=== PATIENT | male | born 1955 | race Caucasian/White ===

== ENCOUNTER 2018-03-23 20:57 | Inpatient (IN) | payer MEDICARE, OTHER ==
[2018-03-23 21:20] LABS: BASOPHILS % 0.3 (0.0-1.5); EOSINOPHILS % 1.4 % (0.0-6.8); MEAN CORPUSCULAR HEMOGLOBIN 34.1 pg (28.0-34.0); MONOCYTES % 4.7 % (0.0-11.0); NEUTROPHILS # 10.2 # k/uL (1.4-7.7)
--- NOTE | 2018-03-23 21:55 | ED Physician Documentation ---
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.) - ROS CONST: no problems (Per [facility] staff), weakness EYES/ENT: nasal drainage, nasal congestion CVS/RESP: cough GI/: denies: problems urinating, vomiting, diarrhea MS/SKIN/LYMPH: none - PAST HX Past History: hypertension, other (anemia, dementia, CVA, encephalopathy, Iron Def Anemia, BPH, chronic constipation) Other History: CVA, other (HLD, hypothyroidism) Surgeries/Procedures: none (patient unable to contribute to ROS) Allergies/Adverse Reactions: Allergies Allergy/AdvReac Type Severity Reaction Status Date / Time No Known Drug Allergies Allergy Verified 03/23/18 23:17 Home Medications: Ambulatory Orders Medication Instructions Recorded Aspirin 81 mg PO DAILY 07/19/12 Carvedilol [Coreg] 25 mg PO BID 03/23/18 Levothyroxine Sodium 88 mcg PO HS 03/23/18 Lisinopril 20 mg PO DAILY 03/23/18 Polyethylene Glycol 3350 [Miralax] 17 gm PO 1100 03/23/18 Potassium Chloride 20 meq PO TID 03/23/18 Simvastatin 20 mg PO HS 03/23/18 - SOCIAL HX Smoking History: non-smoker - FAMILY HX Family History: No - VITAL SIGNS Vital Signs: Vital Signs Temp Pulse Resp BP Pulse Ox 168/100 09/10/13 18:29 - REVIEWED ASSESSMENTS Nursing Assessment Reviewed: Yes Vitals Reviewed: Yes Progress - Progress Progress: RA Sat 88-90% on arrival. patient accepted for admission by Inder GROSSMAN. Levaquin started in ER; blood cultured obtained. ED Results Lab/Radiology - Lab Results Lab Results: Lab Results 03/23/18 03/23/18 21:12 21:12 WBC 11.40 K/ul K/ul (4.00-12.00) RBC 3.99 M/ul M/ul (3.90-5.20) Hgb 13.6 g/dL g/dL (12.0-18.0) Hct 40.5 % % (37.0-53.0) MCV 101.0 fl H fl (80.0-100.0) MCH 34.1 pg H pg (28.0-34.0) MCHC 33.6 g/dL g/dL (30.0-36.0) RDW 12.9 % % (11.3-14.3) Plt Count 193 K/mm3 K/mm3 (130-400) Neut % (Auto) 88.7 % H % (39.0-79.0) Lymph % (Auto) 4.9 % L % (16.0-50.0) [place] % (Auto) 4.7 % % (0.0-11.0) Eos % (Auto) 1.4 % % (0.0-6.8) Baso % (Auto) 0.3 (0.0-1.5) Neut # (Auto) 10.2 # k/uL H # k/uL (1.4-7.7) Lymph # (Auto) 0.6 # k/uL # k/uL (0.6-4.0) [place] # (Auto) 0.5 # k/uL # k/uL (0.0-0.9) Eos # (Auto) 0.2 # k/uL # k/uL (0.0-0.6) Baso # (Auto) 0.0 # k/uL # k/uL (0.0-0.5) Lactate 1.8 U/L U/L (0.7-2.1) - Radiology Radiology Impressions: Portable chest History: Cough and hypoxia Findings: The exam is extremely limited due to expiratory technique. Left low er lobe infiltrate or atelectasis is present. Minimal atelectasis is present at the right lung base. Heart size is probably normal. Impression: 1. Moderate left lower lobe infiltrate versus atelectasis. A standing two view chest radiograph with emphasis on maximal inspiratory effort is recommended due to expiratory technique on this exam. 2. Mild right lower lobe atelectasis. Electronically signed on Mar 23, 2018 9:36:12 PM CDT by: Young Mchugh Patient does not stand; wheelchair bound - Orders Orders: ED Orders Category Date Time Status Place IV Lock 1T Care 03/23/18 21:02 Active CHEST 1VIEW [RAD] Stat Exams 03/23/18 21:02 Taken BLOOD CULTURE Stat Lab 03/23/18 Ordered CBC/PLATELET/DIFF Stat Lab 03/23/18 21:12 Completed LACTATE Stat Lab 03/23/18 21:12 Completed Oxygen Daily Oxygen 03/23/18 21:15 Ordered General Adult Physical Exam - PHYSICAL EXAM GENERAL APPEARANCE: moderate distress EENT: eye inspection normal, ROSE[place], dry mucous membranes RESPIRATORY: no resp distress, chest non-tender, other (deminished in bases) CVS: reg rate & rhythm, heart sounds normal, equal pulses, no murmur, no gallop, PMI nml, no JVD, no friction rub, 24 ABDOMEN: soft, no organomegaly, normal bowel sounds, no abdominal bruit, no distension SKIN: warm/dry, pallor EXTREMITIES: no evidence of injury, no edema, other (wasting of lower extremitie muscle; w/c bound) NEURO: sensation nml, other (patient will not respond verbally; opens eyes with treatments and assessment; follows simple commands,) Discharge Clincal Impression: Pneumonia Qualifiers: Pneumonia type: due to unspecified organism Laterality: left Lung location: lower lobe of lung Qualified Code(s): J18.1 - Lobar pneumonia, unspecified organism Left lower lobe pneumonia Qualifiers: Pneumonia type: due to unspecified organism Qualified Code(s): J18.1 - Lobar pneumonia, unspecified organism Clincal Impression: (Ruled Out): Right lower lobe pneumonia Condition: Stable Disposition: ADMITTED INPATIENT Decision to Admit: [id number] Decision Time: 22:30
--- NOTE | 2018-03-23 22:04 | Diagnostic Imaging Report ---
FABY CONTRERAS (RADIOGRAPHER TECHNOLOGIST) - ER [facility] [id number] [address] Report Submission Date: Mar 23, 2018 9:36:12 PM CDT Patient Study Name: DAVID AWAN Date: Mar 23, 2018 9:06:22 PM CDT Modality Type: DX Gender: M Description: CHEST : 53 Institution: [facility] Physician: FABY CONTRERAS (RADIOGRAPHER TECHNOLOGIST) - ER Portable chest History: Cough and hypoxia Findings: The exam is extremely limited due to expiratory technique. Left lower lobe infiltrate or atelectasis is present. Minimal atelectasis is present at the right lung base. Heart size is probably normal. Impression: 1. Moderate left lower lobe infiltrate versus atelectasis. A standing two view chest radiograph with emphasis on maximal inspiratory effort is recommended due to expiratory technique on this exam. 2. Mild right lower lobe atelectasis. Electronically signed on Mar 23, 2018 9:36:12 PM CDT by: Young MONTE
[2018-03-23 22:32] LABS: eGFR (Non-African) > 60
[2018-03-23] MEDS ORDERED: LEVOFLOXACIN 500MG/D5W 100ML 500 MG in PREMIX BAG 1 BAG IV ONE (22:45)
[2018-03-23] MEDS ORDERED: LEVOFLOXACIN 250MG/D5W 50ML 250 MG in PREMIX BAG 1 BAG IV ONE (22:45)
[2018-03-23] MEDS ORDERED: LEVOFLOXACIN 500MG/D5W 100ML 100 ML IV ONE (23:06)
[2018-03-23] MEDS ORDERED: LEVOFLOXACIN 250MG/D5W 50ML 50 ML IV ONE (23:07)
[2018-03-23] MEDS: IPRATROPIUM/ALBUTEROL SULFATE 3 ML AMPUL.NEB NEB SCH (23:45)
[2018-03-23] MEDS: DEXTROSE 5 %-0.45 % SOD CHLORD 1,000 ML IV SCH (23:57)
[2018-03-24] MEDS ORDERED: LEVOTHYROXINE SODIUM 50 MCG TABLET ONE (01:12)
[2018-03-24] MEDS ORDERED: CARVEDILOL 12.5 MG TABLET PO ONE ×2 (01:13→12:34)
[2018-03-24 02:49] VITALS: BMI 28.1
[2018-03-24] MEDS: LEVOTHYROXINE SODIUM 25 MCG TABLET PO SCH (06:02)
[2018-03-24] MEDS: IPRATROPIUM/ALBUTEROL SULFATE 3 ML AMPUL.NEB NEB SCH ×4 (06:11→23:33)
[2018-03-24] MEDS ORDERED: CARVEDILOL 25 MG TABLET PO SCH (09:00)
[2018-03-24] MEDS: POTASSIUM CHLORIDE 20 MEQ TABLET.ER PO SCH ×3 (09:23→17:32)
[2018-03-24] MEDS: ASPIRIN 81 MG CHEW TAB PEG SCH (09:23)
[2018-03-24] MEDS: LISINOPRIL 20 MG TABLET PO SCH (09:23)
[2018-03-24] MEDS ORDERED: LEVOFLOXACIN 250MG/D5W 50ML 50 ML IV ONE (09:26)
[2018-03-24] MEDS ORDERED: LEVOFLOXACIN 500MG/D5W 100ML 100 ML IV ONE (09:26)
[2018-03-24] MEDS: LEVOFLOXACIN 250MG/D5W 50ML 250 MG in PREMIX BAG 1 BAG IV SCH (09:27)
[2018-03-24] MEDS: LEVOFLOXACIN 500MG/D5W 100ML 500 MG in PREMIX BAG 1 BAG IV SCH (09:27)
[2018-03-24] MEDS: SALINE FLUSH 10 ML DISP.SYRIN IV SCH ×2 (09:34→23:25)
--- NOTE | 2018-03-24 09:42 | History and Physical Report ---
History of Present Illnes - History of Present Illness Reason for Visit: Pnuemonia History of Present Illness: Mr. Daniels is a 63 year old male that was brought to the ER from [facility] last night for fever, cough, and wheezing. He was found to have a left lower lobe pneumonia. He was admitted to the hospital for IV antibiotics for health care associated pneumonia. Patient was tachypenic in the ER and was started on O2 and breathing treatments. He is a poor historian due to hidtory of dementia, previous cerebral infarct and encephalopathy. At the time of interview he denies any pain. He denies difficulty breathing. He does know his name and that he is at [facility]. He is unsure where he lives or what day it is. He is unaware why he is in the hospital. Due to difficulty getting history from patient [facility] was contacted and additional history was obtained. [facility] staff reports a fever of 100.6 at 7:30pm which was treated with tylenol. He was also found to he tachypenic and to have an O2 saturation of 90% on Room Air. He was started on 2L O2 by nasal cannula and O2 returned to 94%. He had a 3 day history of cough and congestion. Last night staff noted increased cough and congestion and patient was found to to be wheezing. They contacted the patients PCP, Dr. Kinsey, who approved transfer to the hospital. 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 Endocrine: Diabetes (Type 2), Hypothyroidism - Past Surgical History Past Surgical History: Other (Unknown by patient or ID staff) - Past Social History Smoke: No (Unknown if ever smoked) Alcohol: None Lives: Skilled Nursing ([facility]) - Health Maintenance Health Maintenance: denies: Cholesterol Influenza Vaccine: No (Unknown) Pneumonia Vaccine: No Resuscitation Status: Resusciation Status Resuscitation Status Full Code Review of Systems - Review of Systems Constitutional: Fever (per nursing staff), Chills, Weakness (generalized) Eyes: Deferred ENT: negative: Ear Pain, Throat Pain Respiratory: Cough Cardiovascular: negative: Chest Pain Gastrointestinal: negative: Abdominal Pain Genitourinary: Deferred Musculoskeletal: Other (denies any pain) Skin: negative: Rash Neurological: Confusion - Medications/Allergies Allergies/Adverse Reactions: Allergies Allergy/AdvReac Type Severity Reaction Status Date / Time No Known Drug Allergies Allergy Verified 03/23/18 23:17 Home Medications: Home Medications Carvedilol [Coreg] 25 mg PO BID 03/23/18 Levothyroxine Sodium 88 mcg PO HS 03/23/18 Lisinopril 20 mg PO DAILY 03/23/18 Polyethylene Glycol 3350 [Miralax] 17 gm PO 1100 03/23/18 Potassium Chloride 20 meq PO TID 03/23/18 Simvastatin 20 mg PO HS 03/23/18 Current Inpatient Medications: Current Inpatient Medications Acetaminophen (Tylenol) 650 mg PO Q6H PRN PRN Reason: Fever >101 Albuterol/Ipratropium (Duoneb) 3 ml NEB Q6 [facility] Last Admin: 03/24/18 06:11 Dose: 3 ml Aspirin (Aspirin) 81 mg PEG DAILY [facility] Last Admin: 03/24/18 09:23 Dose: 81 mg Carvedilol (Coreg) 25 mg PO BID [facility] Last Admin: 03/24/18 09:23 Dose: 25 mg Finasteride (Proscar) 5 mg PO HS [facility] LEVOFLOXACIN 250MG/D5W 50ML (250 mg/ PREMIX BAG) 50 mls @ 50 mls/hr IV DAILY [facility] Stop: 04/07/18 08:59 Last Admin: 03/24/18 09:27 Dose: 50 mls/hr LEVOFLOXACIN 500MG/D5W 100ML (500 mg/ PREMIX BAG) 100 mls @ 100 mls/hr IV DAILY [facility] Stop: 04/07/18 08:59 Last Admin: 03/24/18 09:27 Dose: 100 mls/hr DEXTROSE 5 %-0.45 % SOD CHLORD (D51/2ns) 1,000 mls @ 80 mls/hr IV Q12H [facility] Last Admin: 03/23/18 23:57 Dose: 80 mls/hr Levothyroxine Sodium (Synthroid) 75 mcg PO 0700 [facility] Last Admin: 03/24/18 06:02 Dose: 75 mcg Lisinopril (Prinivil) 20 mg PO DAILY [facility] Last Admin: 03/24/18 09:23 Dose: 20 mg Polyethylene Glycol (Miralax) 17 gm PO 1100 [facility] Potassium Chloride (Klor-Con M20) 20 meq PO TID [facility] Last Admin: 03/24/18 09:23 Dose: 20 meq Simvastatin (Zocor) 20 mg PO HS [facility] Sodium Chloride (Normal Saline Flush) 3 ml IV BID [facility] Last Admin: 03/24/18 09:34 Dose: 3 ml Exam - Exam Vital Signs: Vital Signs (72 hours) 03/23/18 03/23/18 03/23/18 21:00 23:16 23:26 Temperature 101.4 F H 99.4 F Pulse Rate [ 90 88 Pulse ox] Respiratory 20 20 Rate Blood Pressure 120/74 119/66 [Left Arm] O2 Sat by Pulse 96 96 96 Oximetry 03/23/18 03/24/18 03/24/18 23:45 01:41 03:16 Temperature 101.0 F H 99.4 F Pulse Rate [ 84 88 Pulse ox] Respiratory 20 20 Rate Blood Pressure 118/75 119/66 [Left Arm] O2 Sat by Pulse 95 96 94 Oximetry 03/24/18 03/24/18 03/24/18 03:26 06:00 06:27 Temperature 97.8 F Pulse Rate [ 87 87 Pulse ox] Respiratory 20 18 Rate Blood Pressure 136/74 [Left Arm] O2 Sat by Pulse 94 94 Oximetry General: Oriented to Person, Oriented to Place, Cooperative, No acute distress, Thin. No: Oriented to Time HEENT: Atraumatic, PERRLA, EOMI, Mouth Mucous membr. moist/[place], Hearing Grossly Normal. No: Pharyngeal Erythema Neck: Normal Range of Motion Lungs: Wheezes, Decreased Air Movement Cardiovascular: No murmurs Abdomen: Normal bowel sounds, Soft, No tenderness Integumentary: Normal, [place], Warm, Dry. No: Erythema Extremities: No: No cyanosis, No edema, No tenderness/swelling Neurological: Generalized Weakness, Other (mild aphagia) Psych/Mental Status: Other (dementia) - Laboratory Results Laboratory Results: Laboratory Results 03/23/18 03/23/18 03/23/18 21:12 21:12 22:23 WBC 11.40 RBC 3.99 Hgb 13.6 Hct 40.5 MCV 101.0 H MCH 34.1 H MCHC 33.6 RDW 12.9 Plt Count 193 Neut % (Auto) 88.7 H Lymph % (Auto) 4.9 L [place] % (Auto) 4.7 Eos % (Auto) 1.4 Baso % (Auto) 0.3 Neut # (Auto) 10.2 H Lymph # (Auto) 0.6 [place] # (Auto) 0.5 Eos # (Auto) 0.2 Baso # (Auto) 0.0 Sodium 138 Potassium 4.4 Chloride 104 Carbon Dioxide 23 BUN 22 H Creatinine 0.80 Estimated Creat Clear 107 Est GFR ( Amer) > 60 Est GFR (Non-Af Amer) > 60 Glucose 93 Lactate 1.8 Calcium 8.5 Total Bilirubin 0.9 AST 33 ALT 14 Alkaline Phosphatase 82 Total Protein 7.0 Albumin 3.6 Assessment/Plan - Assessment/Plan (1) Left lower lobe pneumonia Status: Acute Current Visit: Yes Assessment: Chest xray shows left lower lobe infiltrate. WBC count is not elevated but there is an early left shift noted on CBC. Patient is wheezing and has had a fever since arrival. Plan: IV levaquin and azithromycin started. O2 PRN. Neb treatments every 6 hours ordered. Will monitor labs in the morning. Tylenol for fever as needed. (2) Dementia Status: Acute Current Visit: Yes Assessment: Patient is significantly confused. He is orientated to person and place. He is unaware of the day. month, or year and does not remember where he lives. After speaking to [facility] staff I was informed that he has a pubic stock plan administrator, Luz Maria Hanks, who makes decisions on his behalf. Plan: Monitor symptoms. (3) Hypertension Status: Acute Current Visit: Yes Assessment: Blood pressure was good on arrival. Plan: Continue home meds and monitor BP. VTE Assessment - RISK FACTOR SCORE VTE RISK FACTOR SCORES: AGE OVER 60 YEARS, ACUTE INFECTION OTHER THEN SEPSIS - RISK VTE MODERATE RISK: SCORE OF 2 (RISK PROXIMAL DVT 2-4%) PROPHYAXIS NEEDED
[2018-03-24] MEDS ORDERED: AZITHROMYCIN 500 MG in 0.9 % SODIUM CHLORIDE 250 ML IV ONE (10:18)
[2018-03-24] MEDS ORDERED: 0.9 % SODIUM CHLORIDE 250 ML IV ONE (12:33)
[2018-03-24] MEDS ORDERED: AZITHROMYCIN 500 MG VIAL IV ONE (12:33)
[2018-03-24] MEDS ORDERED: FINASTERIDE 5 MG TABLET PO ONE (12:34)
[2018-03-24] MEDS ORDERED: SIMVASTATIN 20 MG TABLET ONE (12:35)
[2018-03-24] MEDS: DEXTROSE 5 %-0.45 % SOD CHLORD 1,000 ML IV SCH (12:59)
[2018-03-24] MEDS: POLYETHYLENE GLYCOL 3350 17 GM POWD.PACK PO SCH (13:00)
[2018-03-24] MEDS: CARVEDILOL 12.5 MG TABLET PO SCH ×2 (13:35→21:02)
[2018-03-24] MEDS: ACETAMINOPHEN 325 MG TABLET PO PRN (17:32)
[2018-03-24] MEDS: SIMVASTATIN 20 MG TABLET PO SCH (21:01)
[2018-03-24] MEDS: FINASTERIDE 5 MG TABLET PO SCH (21:01)
[2018-03-25] MEDS: DEXTROSE 5 %-0.45 % SOD CHLORD 1,000 ML IV SCH ×2 (02:49→18:18)
[2018-03-25] MEDS: IPRATROPIUM/ALBUTEROL SULFATE 3 ML AMPUL.NEB NEB SCH ×4 (06:09→23:51)
[2018-03-25] MEDS: LEVOTHYROXINE SODIUM 25 MCG TABLET PO SCH (06:19)
[2018-03-25] MEDS ORDERED: LEVOFLOXACIN 250MG/D5W 50ML 50 ML IV ONE (07:59)
[2018-03-25] MEDS ORDERED: LEVOFLOXACIN 500MG/D5W 100ML 100 ML IV ONE (07:59)
[2018-03-25] MEDS: POTASSIUM CHLORIDE 20 MEQ TABLET.ER PO SCH ×3 (08:09→18:15)
[2018-03-25] MEDS: LEVOFLOXACIN 250MG/D5W 50ML 250 MG in PREMIX BAG 1 BAG IV SCH (08:09)
[2018-03-25] MEDS: ASPIRIN 81 MG CHEW TAB PEG SCH (08:09)
[2018-03-25] MEDS: CARVEDILOL 12.5 MG TABLET PO SCH ×2 (08:09→21:49)
[2018-03-25] MEDS: LISINOPRIL 20 MG TABLET PO SCH (08:09)
[2018-03-25] MEDS: SALINE FLUSH 10 ML DISP.SYRIN IV SCH ×2 (08:10→19:58)
[2018-03-25] MEDS: LEVOFLOXACIN 500MG/D5W 100ML 500 MG in PREMIX BAG 1 BAG IV SCH (08:10)
[2018-03-25 11:11] LABS: MEAN CORPUSCULAR HEMOGLOBIN 33.9 pg (28.0-34.0)
[2018-03-25 11:12] LABS: BASOPHILS % 0.3 (0.0-1.5); EOSINOPHILS % 3.8 % (0.0-6.8); MONOCYTES % 5.9 % (0.0-11.0)
[2018-03-25] MEDS: AZITHROMYCIN 250 MG in 0.9 % SODIUM CHLORIDE 250 ML IV SCH (11:14)
[2018-03-25] MEDS: POLYETHYLENE GLYCOL 3350 17 GM POWD.PACK PO SCH (11:14)
[2018-03-25 11:28] LABS: eGFR (Non-African) > 60
--- NOTE | 2018-03-25 11:35 | Inpatient Progress Note ---
Subjective - Required Recertification Statement I anticipate X number of days because-include discharge plan: 1 - Review of Systems Events since last encounter: Mr. Daniels was admitted and started on IV Levaquin and IV azithromycin for a left lower lobe pneumonia. He was also started on breathing treatments [id number]. Nursing staff notes patient was still running a fever of 101 last night but improvement in mental status. Subjective: Mr. Daniels is more alert this morning and is corporative for interview. He states he is feeing better. He denies any difficulty breathing but notes he is coughing some. He denies any sore throat, ear pain, abdominal pain or other concerns today. He is still confused as to the year and to his current living situation but is aware that he has a public weblogic administrator that handles decisions for him. Per nursing he did run a fever of 101 overnight. They note that he is talking quite a bit more and his mental status has improved a lot in the last 24 hours. General: Chills, Fatigue HEENT: Denies: Sore Throat Pulmonary: Dyspnea (better), Cough (better) Cardiovascular: Denies: Chest Pain Gastrointestinal: Denies: Nausea, Abdominal Pain Genitourinary: Denies: Dysuria Musculoskeletal: Other (denies any pain) Objective - Exam Vitals and I&O: Vital Signs Temp 99.0 F 03/25/18 09:51 Pulse 80 03/25/18 09:51 Resp 18 03/25/18 09:51 BP 120/72 03/25/18 09:51 Pulse Ox 94 03/25/18 09:51 Intake & Output 03/24/18 03/24/18 03/25/18 11:59 23:59 11:59 Intake Total 2610 2076 600 Balance 2610 2076 600 Intake: IV 2370 636 Left Forearm 2370 636 Oral 240 1440 600 Other: Voiding Method Incontinent Incontinent # Voids 2 1 General: Oriented to Person, Cooperative, No acute distress HEENT: Atraumatic, EOMI, Mouth Mucous membr. moist/[place], Dentition Normal Neck: Supple Lungs: Normal air movement (lung sounds much improved), Wheezes (very mild) Cardiovascular: No murmurs Abdomen: Normal bowel sounds, Soft, No tenderness Extremities: No cyanosis, No edema, No tenderness/swelling Skin: Normal, [place], Warm Neurological: Other (patient is still confused but speech and mental status are m) Psych/Mental Status: Other (orientated to person and place ) - Results Results: Laboratory Results WBC 6.90 K/ul (4.00-12.00) 03/25/18 11:07 RBC 3.65 M/ul (3.90-5.20) L 03/25/18 11:07 Hgb 12.4 g/dL (12.0-18.0) 03/25/18 11:07 Hct 37.2 % (37.0-53.0) 03/25/18 11:07 MCV 102.0 fl (80.0-100.0) H 03/25/18 11:07 MCH 33.9 pg (28.0-34.0) 03/25/18 11:07 MCHC 33.4 g/dL (30.0-36.0) 03/25/18 11:07 RDW 12.9 % (11.3-14.3) 03/25/18 11:07 Plt Count 139 K/mm3 (130-400) 03/25/18 11:07 Neut % (Auto) 73.3 % (39.0-79.0) 03/25/18 11:07 Lymph % (Auto) 16.7 % (16.0-50.0) 03/25/18 11:07 [place] % (Auto) 5.9 % (0.0-11.0) 03/25/18 11:07 Eos % (Auto) 3.8 % (0.0-6.8) 03/25/18 11:07 Baso % (Auto) 0.3 (0.0-1.5) 03/25/18 11:07 Neut # (Auto) 5.0 # k/uL (1.4-7.7) 03/25/18 11:07 Lymph # (Auto) 1.2 # k/uL (0.6-4.0) 03/25/18 11:07 [place] # (Auto) 0.4 # k/uL (0.0-0.9) 03/25/18 11:07 Eos # (Auto) 0.3 # k/uL (0.0-0.6) 03/25/18 11:07 Baso # (Auto) 0.0 # k/uL (0.0-0.5) 03/25/18 11:07 Sodium 140 mmol/L (136-145) 03/25/18 11:06 Potassium 4.1 mmol/L (3.5-5.1) 03/25/18 11:06 Chloride 109 mmol/L (98-107) H 03/25/18 11:06 Carbon Dioxide 22 mmol/L (22-30) 03/25/18 11:06 BUN 20 mg/dL (9-20) 03/25/18 11:06 Creatinine 1.00 mg/dL (0.66-1.25) 03/25/18 11:06 Estimated Creat Clear 86 03/25/18 11:06 Est GFR ( Amer) > 60 (60-) 03/25/18 11:06 Est GFR (Non-Af Amer) > 60 (60-) 03/25/18 11:06 Glucose 87 mg/dL (74-106) 03/25/18 11:06 Lactate 1.8 U/L (0.7-2.1) 03/23/18 21:12 Calcium 8.4 mg/dL (8.4-10.2) 03/25/18 11:06 Total Bilirubin 0.5 mg/dL (0.2-1.3) 03/25/18 11:06 AST 18 U/L (15-46) 03/25/18 11:06 ALT 25 U/L (13-69) 03/25/18 11:06 Alkaline Phosphatase 60 U/L (38-126) 03/25/18 11:06 Total Protein 5.7 g/dL (6.3-8.2) L 03/25/18 11:06 Albumin 2.9 g/dL (3.5-5.0) L 03/25/18 11:06 Assessment/Plan - Assessment/Plan (1) Left lower lobe pneumonia Status: Acute Current Visit: Yes Assessment: Patient still running fever overnight of 101. Lung sounds and mental status are improving. Labs from this morning are still pending. Plan: Continue IV antibiotics and breathing treatments. Continue monitoring his O2 saturation and add O2 if needed. Pending lab results and status overnight plan to discharge tomorrow back to [facility]. (2) Dementia Status: Acute Current Visit: Yes Assessment: Patient is more talkative and alert today compared to yesterday. He is orientated to place and person but not to time. He is able to appropriately respond to questions but goes off on stories from years ago. Nursing staff reports some agitation this morning but patient is pleasant and corporative during blood draw and interview. He is hoping to watch the [employer] game this afternoon. Plan: Monitor mental status. (3) Hypertension Status: Acute Current Visit: Yes Assessment: BP has been stable.
[2018-03-25] MEDS: SIMVASTATIN 20 MG TABLET PO SCH (21:49)
[2018-03-25] MEDS: FINASTERIDE 5 MG TABLET PO SCH (21:49)
[2018-03-26] MEDS: ACETAMINOPHEN 325 MG TABLET PO PRN (05:08)
[2018-03-26] MEDS: IPRATROPIUM/ALBUTEROL SULFATE 3 ML AMPUL.NEB NEB SCH (05:16)
[2018-03-26] MEDS: DEXTROSE 5 %-0.45 % SOD CHLORD 1,000 ML IV SCH (05:27)
[2018-03-26] MEDS: LEVOTHYROXINE SODIUM 25 MCG TABLET PO SCH (06:00)
--- NOTE | 2018-03-26 08:55 | Discharge Summary ---
Discharge Summary - Discharge Sumary History of Present Illness: Mr. Daniels is a 63 year old male that was brought to the ER from [facility] last night for fever, cough, and wheezing. He was found to have a left lower lobe pneumonia. He was admitted to the hospital for IV antibiotics for health care associated pneumonia. Patient was tachypenic in the ER and was started on O2 and breathing treatments. He is a poor historian due to hidtory of dementia, previous cerebral infarct and encephalopathy. At the time of interview he denies any pain. He denies difficulty breathing. He does know his name and that he is at [facility]. He is unsure where he lives or what day it is. He is unaware why he is in the hospital. Due to difficulty getting history from patient [facility] was contacted and additional history was obtained. [facility] staff reports a fever of 100.6 at 7:30pm which was treated with tylenol. He was also found to he tachypenic and to have an O2 saturation of 90% on Room Air. He was started on 2L O2 by nasal cannula and O2 returned to 94%. He had a 3 day history of cough and congestion. Last night staff noted increased cough and congestion and patient was found to to be wheezing. They contacted the patients PCP, Dr. Kinsey, who approved transfer to the hospital. Condition at Discharge: Stable Consultations this Visit: None Procedures this Visit: None <Sandie Little - Last Filed: 03/26/18 08:54> - Discharge Sumary History of Present Illness: Mr. Daniels was admitted and given 3 does of IV levaquin and IV Azithromycin. His lung sounds improved, and he was weened off of supplemental O2. He has been without a fever for the last 24 hours and thus will be discharged back to [facility] today. Each day he states he is feeing better and denies any difficulty breathing. He has had a great appetite during his stay. Condition at Discharge: Stable Consultations this Visit: None Procedures this Visit: None Discharge Summary: Patient will be discharged back to [facility] on oral Levaquin for 5 days, Oral azithromycin for 3 days and PRN DuoNeb breathing treatments. He will follow up with his PCP Dr. Kinsey. Patient has been completely weened off of supplemental O2, his WBC count is normal, and he has been afebrile for 24 hours. <Irma Zapata - Last Filed: 03/28/18 19:11> - Discharge Sumary Home Medications: Ambulatory Orders Medication Instructions Recorded Aspirin 81 mg PO DAILY 07/19/12 Carvedilol [Coreg] 25 mg PO BID 03/23/18 Levothyroxine Sodium 88 mcg PO HS 03/23/18 Lisinopril 20 mg PO DAILY 03/23/18 Polyethylene Glycol 3350 [Miralax] 17 gm PO 1100 03/23/18 Potassium Chloride 20 meq PO TID 03/23/18 Simvastatin 20 mg PO HS 03/23/18 Allergies/Adverse Reactions: Allergies Allergy/AdvReac Type Severity Reaction Status Date / Time No Known Drug Allergies Allergy Verified 03/23/18 23:17
[2018-03-26] MEDS ORDERED: LEVOFLOXACIN 250MG/D5W 50ML 50 ML IV ONE (09:17)
[2018-03-26] MEDS ORDERED: LEVOFLOXACIN 500MG/D5W 100ML 100 ML IV ONE (09:17)
[2018-03-26 09:18] VITALS: BP 130/74
[2018-03-26] MEDS: LEVOFLOXACIN 500MG/D5W 100ML 500 MG in PREMIX BAG 1 BAG IV SCH (09:19)
[2018-03-26] MEDS: LEVOFLOXACIN 250MG/D5W 50ML 250 MG in PREMIX BAG 1 BAG IV SCH (09:20)
[2018-03-26] MEDS: LISINOPRIL 20 MG TABLET PO SCH (10:05)
[2018-03-26] MEDS: CARVEDILOL 12.5 MG TABLET PO SCH (10:06)
[2018-03-26] MEDS: ASPIRIN 81 MG CHEW TAB PEG SCH (10:06)
[2018-03-26] MEDS: POTASSIUM CHLORIDE 20 MEQ TABLET.ER PO SCH ×2 (10:06→13:38)
[2018-03-26] MEDS: SALINE FLUSH 10 ML DISP.SYRIN IV SCH (10:07)
[2018-03-26] MEDS: POLYETHYLENE GLYCOL 3350 17 GM POWD.PACK PO SCH (12:00)
[2018-03-26] MEDS: AZITHROMYCIN 250 MG in 0.9 % SODIUM CHLORIDE 250 ML IV SCH (12:01)
== END 2018-03-26 14:20 | DRG 195 ==
LOC: ED 20:57 → SOUTH 23:15
PROVIDERS: ADMIT Physician Assistant; ATTEND Physician Assistant
DX: J18.1 Lobar pneumonia, unspecified organism (principal); I50.9 Heart failure, unspecified; I10 Essential (primary) hypertension; D50.9 Iron deficiency anemia, unspecified; F03.90 Unspecified dementia, unspecified severity, without behavioral disturbance, psychotic disturbance, mood disturbance, and anxiety; Z86.73 Personal history of transient ischemic attack (TIA), and cerebral infarction without residual deficits; E11.9 Type 2 diabetes mellitus without complications; E03.9 Hypothyroidism, unspecified; E78.5 Hyperlipidemia, unspecified; N40.0 Benign prostatic hyperplasia without lower urinary tract symptoms
CPT/HCPCS: 71045; 80053; 83605; 85025; 87040; 96365; 99284; A9270; J0456; J1956; J7050; 99222; 99232; 99238; S1016; S5010